=== PATIENT | male | born 1950 | race Two or more races ===

== ENCOUNTER 2018-02-10 12:25 | Outpatient (CLI) | payer OTHER | END 2018-02-10 12:51 | disposition home or self-care (01) | LOC: NUCLEAR 12:25 | DX: M81.0 Age-related osteoporosis without current pathological fracture (principal) ==

== ENCOUNTER 2018-03-01 09:40 | Outpatient (CLI) | payer OTHER | END 2018-03-01 09:42 | disposition home or self-care (01) | LOC: SONOGRAMA 09:40 → MAMO-SONO 10:15 | DX: N40.1 Benign prostatic hyperplasia with lower urinary tract symptoms (principal) ==

== ENCOUNTER 2018-04-19 13:43 | Outpatient (CLI) | payer OTHER | END 2018-04-19 13:48 | disposition home or self-care (01) | LOC: RAD 501 13:43 | DX: M25.561 Pain in right knee (principal); M25.562 Pain in left knee ==

== ENCOUNTER 2018-05-26 10:22 | Emergency (ER) | payer OTHER ==
[~2018-05-26] VITALS: Ht 182.9 cm; Wt 95.3 kg
== END 2018-05-26 17:55 | disposition home or self-care (01) ==
LOC: ER 10:22 → CPU-OBS 10:44 → ER 10:44
DX: R07.89 Other chest pain (principal)

== ENCOUNTER 2019-03-30 12:55 | Outpatient (CLI) | payer OTHER | END 2019-03-30 15:36 | disposition home or self-care (01) | LOC: RAD 12:55 | DX: R07.89 Other chest pain (principal) ==

== ENCOUNTER 2020-06-17 12:27 | Outpatient (CLI) | payer OTHER | END 2020-06-17 12:33 | disposition home or self-care (01) | LOC: RAD 12:27 | PROVIDERS: ATTEND Urology | DX: N40.1 Benign prostatic hyperplasia with lower urinary tract symptoms (principal); R31.29 Other microscopic hematuria; R97.20 Elevated prostate specific antigen [PSA] ==